=== PATIENT | male | born 2000 | race Caucasian/White ===

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

== ENCOUNTER 2020-06-26 17:37 | Emergency (ER) | payer OTHER ==
[~2020-06-26] VITALS: Ht 182.9 cm; Wt 83.0 kg
[~2020-06-26 17:37] MED LIST changes: +LORAZEPAM 1 MG T1 MG PO
[2020-06-26] MEDS ORDERED: PROMETH-CODEIN 65 ML PO (19:30)
[2020-06-26 19:58] VITALS: BP 135/79
== END 2020-06-26 19:58 | disposition home or self-care (01) ==
LOC: ER 17:37
DX: R05 Cough (principal); R50.9 Fever, unspecified; Z20.828 Contact with and (suspected) exposure to other viral communicable diseases; Z79.899 Other long term (current) drug therapy

== ENCOUNTER 2020-07-07 01:56 | Emergency (ER) | payer OTHER ==
[~2020-07-07] VITALS: Ht 182.9 cm; Wt 82.6 kg
[~2020-07-07 01:56] MED LIST changes: +PROMETH-CODEIN 65 ML PO
[2020-07-07] MEDS ORDERED: TESSALON PERLE100 M1 PO (02:04)
[2020-07-07] MEDS ORDERED: ONDANSETRON HCL4 M2 PO (02:05)
[2020-07-07 02:51] LABS: URINE BILIRUBIN 2+ (Negative); URINE BLOOD TRACE (Negative); URINE CLARITY CLEAR; URINE COLOR YELLOW; URINE GLUCOSE-RANDOM* NEGATIVE (Negative); URINE KETONES 1+ (Negative); URINE LEUKOCYTES-REFLEX NEGATIVE (Negative); URINE NITRITE-REFLEX NEGATIVE (Negative); URINE PROTEIN (DIPSTICK) TRACE (Negative); URINE SPECIFIC GRAVITY 1.025 (1.005-1.035)
[2020-07-07 02:57] LABS: BASOPHILS 0.5 % (0.0-2.0); EOSINOPHILS 0.5 % (0.0-3.0); HEMATOCRIT 33.3 % (42.0-52.0); HEMOGLOBIN 11.5 gm/dL (14.0-18.0); LYMPHOCYTES 7.6 % (24.0-44.0); MCH 29.3 pg (26.0-34.0); MCHC 34.5 g/dL (28.0-37.0); MCV 85.1 fL (80.0-100.0); MONOCYTES 4.4 % (1.0-8.0); PLATELET COUNT 502 thou/uL (150-400); RBC 3.92 mil/uL (4.50-6.00); WBC 11.5 thou/uL (4.0-11.0)
[2020-07-07 02:59] LABS: CALCIUM 9.4 mg/dL (8.5-10.1); POTASSIUM 3.3 mmol/L (3.5-5.1)
[2020-07-07 03:01] LABS: ICTOTEST (BILI CONFIRMATORY) Positive (Negative)
[2020-07-07 03:05] LABS: ALBUMIN 2.9 g/dL (3.4-5.0); TOTAL BILIRUBIN 0.7 mg/dL (0.2-1.0); TOTAL PROTEIN 8.7 g/dL (6.4-8.2)
[2020-07-07] MEDS ORDERED: ZITHROMAX250 MG PO (04:33)
[2020-07-07] MEDS ORDERED: AUGMENTIN 875-1 EACH PO (04:34)
[2020-07-07] MEDS ORDERED: PREDNISONE 20 M20 M1 PO (04:35)
[2020-07-07] MEDS ORDERED: REGLAN 10 MG TA10 MG PO (04:35)
[2020-07-07 05:55] VITALS: BP 100/61
== END 2020-07-07 06:07 | disposition home or self-care (01) ==
LOC: ER 01:56
PROVIDERS: Emergency Medicine
DX: J20.9 Acute bronchitis, unspecified (principal); Z79.899 Other long term (current) drug therapy; Z88.1 Allergy status to other antibiotic agents; Z88.8 Allergy status to other drugs, medicaments and biological substances

== ENCOUNTER → 2020-11-15 | Outpatient (CLI) | payer OTHER ==
[~2020-11-15] MED LIST changes: +ALPRAZOLAM 0.50.5 M1 PO; +AUGMENTIN 875-1 EACH PO; +LEVOFLOXACIN500 MG PO; +ONDANSETRON HCL4 M2 PO; +PREDNISONE 10 M10 M1 PO; +PREDNISONE 20 M20 M1 PO; +REGLAN 10 MG TA10 MG PO; +TESSALON PERLE100 M1 PO; +ZITHROMAX250 MG PO; +ZYPREXA 5 MG TAB5 M2 PO
== END ==
LOC: CAT 09:28
PROVIDERS: ATTEND Pediatrics
DX: R06.02 Shortness of breath (principal)

== ENCOUNTER → 2021-02-11 | Outpatient (CLI) | payer OTHER | LOC: PUL 08:51 | PROVIDERS: ATTEND Pediatrics | DX: J18.9 Pneumonia, unspecified organism (principal); R06.02 Shortness of breath; U07.0 Vaping-related disorder ==